=== PATIENT | female | born 2005 | race Caucasian/White ===

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

== ENCOUNTER 2024-10-07 13:42 | Outpatient (REF) | payer MEDICAID, SELFPAY ==
[2024-10-07 16:34] LABS: Estimated Average Glucose 103 mg/dL; Hemoglobin A1c % 5.2 % (<6.0)
[2024-10-07 17:20] LABS: Alanine Aminotransferase 19 U/L (0-31); Albumin Level 4.1 g/dL (3.5-5.0); Alkaline Phosphatase 80 U/L (39-117); Anion Gap 10 (12-20); Aspartate Amino Transferase 25 U/L (5-31); Bilirubin Total 0.3 mg/dL (0.0-1.0); Blood Urea Nitrogen 12 mg/dL (9-16); Calcium 9.4 mg/dL (8.4-10.2); Carbon Dioxide 26 mmol/L (22-29); Chloride 110 mmol/L (96-108); Cholesterol 188 mg/dL (<200); Estimated Glomerular Filt Rate > 60; Glucose Random 90 mg/dL (60-115); HDL Cholesterol 50 mg/dL (>40); LDL Cholesterol Calculated 110 mg/dL (<100); Sodium 142 mmol/L (135-145); TSH reflex Free T4 0.93 uIU/mL (0.32-4.0); Total Protein 8.1 g/dL (6.5-8.0); Triglycerides 142 mg/dL (<150)
[2024-10-07 17:50] LABS: CT PCR NOT DETECTED (Not Detect.); NG PCR NOT DETECTED (Not Detect.)
[2024-10-07 20:01] LABS: Reflex LDLD? No
[2024-10-08 08:11] LABS: Syphilis Screen Nonreactive (Nonreactive)
[2024-10-08 08:27] LABS: HIV AB/AG Nonreactive (Nonreactive); ~HepC Num1 0.12 S/CO (0.00-0.79); ~Hepatitis C Antibody Nonreactive (Nonreactive)
== END 2024-10-07 13:43 | disposition home or self-care (01) ==
LOC: HO.HHCL 13:42
PROVIDERS: Visit Provider Family Medicine
DX: Z11.3 Encounter for screening for infections with a predominantly sexual mode of transmission (principal); R03.0 Elevated blood-pressure reading, without diagnosis of hypertension; Z68.34 Body mass index [BMI] 34.0-34.9, adult; E66.09 Other obesity due to excess calories; E66.811 Obesity, class 1
CPT/HCPCS: 80053; 80061; 83036; 84443; 86780; 86803; 87389; 87491; 87591

== ENCOUNTER 2025-04-24 10:01 | Emergency (ER) | payer OTHER, SELFPAY ==
--- NOTE | ~2025-04-24 | XR_ITS ---
EXAMINATION: XR HAND, RIGHT CLINICAL INFORMATION: pain, injury COMPARISON: None available. TECHNIQUE: PA, lateral, and oblique views of the right hand. FINDINGS: The bones and soft tissues are normal. No fracture. Alignment is anatomic. Joint spaces are maintained. No erosions or soft tissue calcifications. XR/XR hand RT min 3V IMPRESSION: Normal right hand. Electronically signed by: Bharath Pretty MD 04/24/2025 10:45 AM EDT
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
[2025-04-24 10:09] VITALS: BP 129/72; BP 144/98; PULSE 111; PULSE 89; RESP 18; TEMP 36.6; O2SAT 98; O2SAT 99; BMI 25.6
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
[2025-04-24 11:30] VITALS: BP 120/82; PULSE 78; RESP 18; TEMP 37; O2SAT 99
[2025-04-24 11:38] VITALS: BP 120/82; PULSE 78; RESP 18; TEMP 37; O2SAT 99
== END 2025-04-24 11:41 | disposition home or self-care (01) ==
PROVIDERS: Emergency Provider Emergency Medicine; PCP Family Medicine
DX: T14.8XXA Other injury of unspecified body region, initial encounter (principal); R51.9 Headache, unspecified; V47.6XXA Car passenger injured in collision with fixed or stationary object in traffic accident, initial encounter; Y93.89 Activity, other specified; Y92.488 Other paved roadways as the place of occurrence of the external cause; Y99.8 Other external cause status
CPT/HCPCS: 70450; 73130; 99283; 99284

== ENCOUNTER → 2025-04-24 10:35 | Outpatient (BNV) | payer MEDICAID, SELFPAY | PROVIDERS: PCP Family Medicine; Visit Provider Radiology Diagnostic Radiology | DX: S09.90XA Unspecified injury of head, initial encounter (principal); M79.641 Pain in right hand; V47.6XXA Car passenger injured in collision with fixed or stationary object in traffic accident, initial encounter | CPT/HCPCS: 70450; 73130 ==